=== PATIENT | female | born 1950 | race Caucasian/White ===

== ENCOUNTER 2017-09-20 08:24 | Day surgery (SDC) | payer MEDICARE, OTHER ==
[~2017-09-20] VITALS: Ht 157.5 cm; Wt 79.4 kg
[~2017-09-20 08:24] MED LIST: ALBU90OI; AZO CRANBERRY1 EACH PO
== END 2017-09-20 10:57 | disposition home or self-care (01) ==
LOC: ORSCSDS 08:24
PROVIDERS: Internal Medicine Gastroenterology
PROC: 0DJD8ZZ Inspection of Lower Intestinal Tract, Via Natural or Artificial Opening Endoscopic (ICD-10-PCS; principal; 2017-09-20 09:45)
DX: Z12.11 Encounter for screening for malignant neoplasm of colon (principal); K57.30 Diverticulosis of large intestine without perforation or abscess without bleeding
CPT/HCPCS: J7120

== ENCOUNTER → 2017-10-12 | Outpatient (CLI) | payer MEDICARE, OTHER | END | disposition home or self-care (01) | LOC: PLD 10:33 → LAB SHORT 10:33 | DX: D22.72 Melanocytic nevi of left lower limb, including hip (principal) | CPT/HCPCS: 88305 ==

== ENCOUNTER → 2018-12-13 | Outpatient (CLI) | payer MEDICARE, OTHER | END | disposition home or self-care (01) | LOC: LAB EV 07:50 → LAB SHORT 07:50 | DX: R35.0 Frequency of micturition (principal) | CPT/HCPCS: 87077; 87086; 87186 ==

== ENCOUNTER → 2019-08-20 | Outpatient (CLI) | payer MEDICARE, OTHER ==
[2019-08-20 15:24] LABS: Source, Urine Clean Catch
[2019-08-20 15:34] LABS: Bacteria Mod /hpf; Squamous Epithelial Cells Rare /hpf (Few)
== END ==
LOC: LAB SHORT 15:22 → LAB EV 15:22
PROVIDERS: Physician Assistant
DX: R31.9 Hematuria, unspecified (principal)
CPT/HCPCS: 81015; 87077; 87086; 87186

== ENCOUNTER → 2020-09-10 | Outpatient (CLI) | payer MEDICARE, OTHER ==
[2020-09-10 13:26] LABS: Alanine Aminotransfer (ALT/SGP 36 U/L (12-78); Albumin, Blood 4.2 g/dL (3.4-5.0); Albumin/Globulin Ratio 1.4 (0.8-1.8); Alk Phos 59 U/L (40-126); Anion Gap 8 mmol/L (6-16); Aspartate Aminotrans (AST/SGOT 18 U/L (12-37); Bilirubin, Total 1.4 mg/dL (0.1-1.0); Blood Urea Nitrogen 17 mg/dL (8-24); Bun/Creatinine Ratio 18.9 (12.0-20.0); CHOL/HDL RATIO 6.2; CO2, Blood 28 mmol/L (21-32); Calcium, Blood 9.3 mg/dL (8.5-10.1); Chloride, Blood 103 mmol/L (98-108); Cholesterol 237 mg/dL (50-200); Globulin, Blood 3.1 g/dL (2.2-4.0); Glomerular Filtration Rate >60 (60-); Glucose, Blood 104 mg/dL (70-99); HDL Cholesterol 38 mg/dL (>39); LDL/HDL RATIO 4.1; Low Density Lipoprotein Chol 156 mg/dL (<110); Potassium, Blood 4.2 mmol/L (3.5-5.5); Sodium, Blood 139 mmol/L (136-145); Total Protein, Blood 7.3 g/dL (6.4-8.2); Triglycerides 216 mg/dL (30-160); Very Low Density Lipoprot Chol 43 mg/dL (6-32)
[2020-09-10 14:58] LABS: Hematocrit 43.8 % (33.0-51.0); Hemoglobin 13.9 g/dL (11.5-16.0); Mean Corpuscular HGB 29.1 pg (26.0-34.0); Mean Corpuscular HGB Conc 31.7 g/dL (31.5-36.5); Mean Corpuscular Volume 92 fL (80-100); Mean Platelet Volume 10.1 fL (9.1-12.4); Platelet Count 223 K/mm3 (150-400); RDW Coefficient Variation 12.8 % (11.7-14.2); RDW Standard Deviation 43.4 fL (35.1-46.3); Red Blood Cell Count 4.78 M/mm3 (3.80-5.20); White Blood Cell Count 36.61 K/mm3 (4.00-11.30)
[2020-09-10 16:02] LABS: BASOPHILS PERCENT MAN 0 % (0-2); EOSINOPHILS PERCENT MAN 0 % (0-6); LYMPHOCYTES ABSOLUTE MAN 34.04 K/mm3 (0.84-5.20); LYMPHOCYTES PERCENT MAN 93 % (21-46); MONOCYTES ABSOLUTE MAN 0.73 K/mm3 (0.16-1.47); MONOCYTES PERCENT MAN 2 % (4-13); NEUTROPHILS ABSOLUTE MAN 1.83 K/mm3 (1.96-9.15); SEG NEUTROPHILS PERCENT MAN 5 % (41-73); TOTAL CELLS COUNTED 100
== END | disposition home or self-care (01) ==
LOC: LAB SHORT 12:22 → LAB EV 12:22
PROVIDERS: Nurse Practitioner
DX: C91.90 Lymphoid leukemia, unspecified not having achieved remission (principal); E78.5 Hyperlipidemia, unspecified; E11.9 Type 2 diabetes mellitus without complications
CPT/HCPCS: 80053; 80061; 83036; 85025

== ENCOUNTER → 2021-07-21 | Outpatient (CLI) | payer MEDICARE, OTHER | LOC: LAB 14:23 → LAB SHORT 14:23 | DX: J32.9 Chronic sinusitis, unspecified (principal); R30.0 Dysuria; Z88.1 Allergy status to other antibiotic agents | CPT/HCPCS: 87086 ==

== ENCOUNTER → 2022-01-21 | Outpatient (CLI) | payer MEDICARE, OTHER | END | disposition home or self-care (01) | LOC: LAB SHORT 10:57 | DX: R35.0 Frequency of micturition (principal) | CPT/HCPCS: 87077; 87086; 87186 ==

== ENCOUNTER 2023-03-25 08:58 | Emergency (ER) | payer MEDICARE, OTHER ==
[~2023-03-25] VITALS: Ht 154.9 cm; Wt 80.3 kg
[2023-03-25] MEDS ORDERED: AMOCLA875 PO (12:08)
[2023-03-25 13:50] LABS: Hematocrit 39.8 % (33.0-51.0); Hemoglobin 13.2 g/dL (11.5-16.0); Mean Corpuscular HGB 30.1 pg (26.0-34.0); Mean Corpuscular HGB Conc 33.2 g/dL (31.5-36.5); Mean Corpuscular Volume 91 fL (80-100); Mean Platelet Volume 9.7 fL (9.1-12.4); Platelet Count 166 K/mm3 (150-400); RDW Coefficient Variation 13.1 % (11.7-14.2); RDW Standard Deviation 43.4 fL (35.1-46.3); Red Blood Cell Count 4.38 M/mm3 (3.80-5.20); White Blood Cell Count 38.69 K/mm3 (4.00-11.30)
[2023-03-25 14:15] LABS: Albumin, Blood 4.1 g/dL (3.4-5.0); Albumin/Globulin Ratio 1.3 (0.8-1.8); Bilirubin, Total 1.3 mg/dL (0.1-1.0); Bun/Creatinine Ratio 23.5 (12.0-20.0); Calcium, Blood 9.1 mg/dL (8.5-10.1); Creatinine, Blood 0.72 mg/dL (0.40-1.00); Globulin, Blood 3.2 g/dL (2.2-4.0); Potassium, Blood 4.1 mmol/L (3.5-5.5); Total Protein, Blood 7.3 g/dL (6.4-8.2)
[2023-03-25 14:45] VITALS: BP 156/64
[2023-03-25 15:31] LABS: BASOPHILS PERCENT MAN 0 % (0-2); EOSINOPHILS ABSOLUTE MAN 0.38 K/mm3 (0.00-0.68); EOSINOPHILS PERCENT MAN 1 % (0-6); LYMPHOCYTES ABSOLUTE MAN 32.88 K/mm3 (0.84-5.20); LYMPHOCYTES PERCENT MAN 85 % (21-46); MONOCYTES ABSOLUTE MAN 0.77 K/mm3 (0.16-1.47); MONOCYTES PERCENT MAN 2 % (4-13); NEUTROPHILS ABSOLUTE MAN 4.64 K/mm3 (1.96-9.15); SEG NEUTROPHILS PERCENT MAN 12 % (41-73); TOTAL CELLS COUNTED 100
== END 2023-03-25 14:59 | disposition home or self-care (01) ==
LOC: ER 08:58
PROVIDERS: Physician Assistant
DX: S06.5X0A Traumatic subdural hemorrhage without loss of consciousness, initial encounter (principal); S02.2XXB Fracture of nasal bones, initial encounter for open fracture; S00.12XA Contusion of left eyelid and periocular area, initial encounter; S00.11XA Contusion of right eyelid and periocular area, initial encounter; S00.511A Abrasion of lip, initial encounter; S00.81XA Abrasion of other part of head, initial encounter; E11.9 Type 2 diabetes mellitus without complications; I10 Essential (primary) hypertension; Z23 Encounter for immunization; Z85.6 Personal history of leukemia; Z88.0 Allergy status to penicillin; Z88.1 Allergy status to other antibiotic agents; W18.30XA Fall on same level, unspecified, initial encounter
CPT/HCPCS: 70160; 70450; 72125; 80053; 85025; 90471; 90714; 90715; 99285-25; J2185

== ENCOUNTER 2023-08-04 17:11 | Emergency (ER) | payer MEDICARE, OTHER ==
[~2023-08-04] VITALS: Ht 154.9 cm; Wt 81.7 kg
[~2023-08-04 17:11] MED LIST changes: +AMOCLA875 PO
[2023-08-04 17:15] VITALS: BP 140/91
== END 2023-08-04 20:11 | disposition home or self-care (01) ==
LOC: ER 17:11
DX: S01.01XA Laceration without foreign body of scalp, initial encounter (principal); W22.8XXA Striking against or struck by other objects, initial encounter; E11.9 Type 2 diabetes mellitus without complications; I10 Essential (primary) hypertension; Z79.899 Other long term (current) drug therapy
CPT/HCPCS: 12002; 70450; 99284-25

== ENCOUNTER → 2023-09-27 | Outpatient (CLI) | payer MEDICARE ==
[2023-09-27 17:35] LABS: Source, Urine Voided
[2023-09-27 19:14] LABS: Calcium Oxalate Crystals Few /hpf; Squamous Epithelial Cells Few /hpf (Few); White Blood Cells, Urine 25-50 /hpf (0-5)
[2023-09-27 19:15] LABS: Bacteria Mod /hpf; Transitional Epithelial Cells Few /hpf (0-Rare)
== END ==
LOC: LAB SHORT 17:33 → LAB 17:33
PROVIDERS: Family Medicine
DX: R30.0 Dysuria (principal)
CPT/HCPCS: 81015; 87077; 87086; 87186

== ENCOUNTER → 2024-12-20 | Outpatient (CLI) | payer MEDICARE, OTHER ==
[2024-12-20 13:57] LABS: Adenovirus F 40/41 Not Detected (NOT DETECT); Astrovirus Not Detected (NOT DETECT); Campylobacter Sp Not Detected (NOT DETECT); Cryptosporidium Not Detected (NOT DETECT); Cyclospora Cayetanensis Not Detected (NOT DETECT); E. Coli O157 Not Detected (NOT DETECT); Entamoeba Histolytica Not Detected (NOT DETECT); Enteroaggregative E. coli-EAEC Not Detected (NOT DETECT); Enteropathogenic E. coli-EPEC Not Detected (NOT DETECT); Enterotoxigenic E. coli-ETEC Not Detected (NOT DETECT); Giardia Lamblia Not Detected (NOT DETECT); Norovirus GI/GII Not Detected (NOT DETECT); Plesiomonas Shigelloides Not Detected (NOT DETECT); Rotavirus A Not Detected (NOT DETECT); Salmonella Sp Not Detected (NOT DETECT); Sapovirus Not Detected (NOT DETECT); Shiga Toxin-prod E. coli-STEC Not Detected (NOT DETECT); Shigella/Enteroin E. coli-EIEC Not Detected (NOT DETECT); Vibrio Cholerae Not Detected (NOT DETECT); Vibrio Sp Not Detected (NOT DETECT); Yersinia Enterocolitica Not Detected (NOT DETECT)
== END | disposition home or self-care (01) ==
LOC: LAB 08:45 → LAB SHORT 08:45
PROVIDERS: Family Medicine
DX: R19.7 Diarrhea, unspecified (principal)
CPT/HCPCS: 87507